=== PATIENT | male | born 1955 | race African-American/Black ===

== ENCOUNTER 2016-06-09 09:54 | Emergency (ER) | payer MEDICAID ==
[~2016-06-09] VITALS: Ht 190.5 cm; Wt 117.9 kg
[~2016-06-09 09:54] MED LIST: BENA40TA3 PO; METF500T4 PO; SIMV10TA6 PO
[2016-06-09] MEDS ORDERED: DIAZEPAM 5 MG TABLET PO ONE (10:15)
[2016-06-09] MEDS ORDERED: KETOROLAC 60MG/2ML VIAL IM ONE (11:30)
[2016-06-09 16:06] VITALS: BP 154/92
== END 2016-06-09 16:11 | disposition home or self-care (01) ==
LOC: ER 10:19
DX: M43.6 Torticollis (principal); I10 Essential (primary) hypertension; Z79.899 Other long term (current) drug therapy; E11.9 Type 2 diabetes mellitus without complications; F17.200 Nicotine dependence, unspecified, uncomplicated; E78.5 Hyperlipidemia, unspecified
CPT/HCPCS: 72125; 96372; 99284; J1885; Z7610

== ENCOUNTER 2017-09-05 01:14 | Emergency (ER) | payer MEDICAID ==
[~2017-09-05] VITALS: Ht 185.4 cm; Wt 100.0 kg
[~2017-09-05 01:14] MED LIST changes: -METF500T4 PO; +METF500T6 PO
[2017-09-05] MEDS ORDERED: MORPHINE SULFATE 4 MG/ML CPJ (NOT FOR IM USE) IV STA (02:45)
[2017-09-05] MEDS ORDERED: ONDANSETRON HCL 4MG/2ML VIAL IV STA (02:45)
[2017-09-05] MEDS ORDERED: METHOCARBAMOL 500MG TABLET PO ONE (05:30)
[2017-09-05] MEDS ORDERED: HYDROCODONE/ACETAMINOPHEN 10/325MG TABLET PO ONE (05:30)
[2017-09-05] MEDS ORDERED: CLONIDINE 0.1MG TABLET PO ONE (13:15)
[2017-09-05 13:35] VITALS: BP 196/91
== END 2017-09-05 13:35 | disposition home or self-care (01) ==
LOC: ER 01:45
DX: M54.5 Low back pain (principal); G89.29 Other chronic pain; I10 Essential (primary) hypertension; E11.9 Type 2 diabetes mellitus without complications; H54.61 Unqualified visual loss, right eye, normal vision left eye; Z91.81 History of falling; Z86.73 Personal history of transient ischemic attack (TIA), and cerebral infarction without residual deficits
CPT/HCPCS: 72100; 72170; 96374; 96375; 99284; J2270; J2405; Z7610